=== PATIENT | male | born 1955 | race Caucasian/White ===

== ENCOUNTER 2024-03-31 18:07 | Emergency (ER) | payer MEDICARE, BC, SELFPAY ==
[2024-03-31 18:39] VITALS: BP 109/73; PULSE 62; RESP 16; TEMP 36.6; O2SAT 97; BMI 27.1
--- NOTE | 2024-03-31 18:55 | XR_ITS ---
Examination: Abdomen sonogram, Limited Date and time of exam: March 31, 2024 1725 hrs. Indications: Right upper abdominal pain beginning 2 months ago Technique: Real-time charles scale transabdominal sonographic images of the upper abdomen obtained. Findings: Absent gallbladder Common bile duct 0.7 cm no stones Pancreatic head 3.0 cm Liver 16.7 cm fatty infiltration lobular contour no focal liver lesions Normal hepatopedal portal venous flow Patent IVC Impression: Absent gallbladder No common bile duct stones Mild hepatomegaly, liver irregular in contour, suspect primary hepatocellular disease
--- NOTE | 2024-03-31 18:56 | EDRME_ITS ---
Rapid Medical Screening Exam [facility] Arrival date/time: 03/31/24 18:07 69M with history of alcohol use and cholecystectomy presents to ED with several days of jaundice. Patient was in another ED 2 weeks ago with hypotension and CBD stone. Stones were not removed due to no GI capabilities and transfer was not done. Chief Complaint: Recheck/Abnormal Lab/Rx Vital signs: Vital Signs Temperature 97.8 F 03/31/24 18:39 Pulse Rate 62 03/31/24 18:39 Respiratory Rate 16 03/31/24 18:39 Blood Pressure 109/73 03/31/24 18:39 Pulse Oximetry (%) 97 03/31/24 18:39 Oxygen Delivery Method Room Air 03/31/24 18:39
[2024-03-31 19:47] LABS: Basophils % (Auto) 1 % (0-2.5); Eosinophils # (Auto) 0.2 Thou/mm3 (0.0-0.5); Eosinophils % (Auto) 3 % (0-10); Hematocrit 36.8 % (41.0-53.0); Hemoglobin 12.2 g/dL (13.5-16.0); Immature Granulocytes % (Auto) 1 % (0-0); Immature Granulocytes Auto 0.03 Thou/mm3 (0.00-0.00); Lymphocytes # (Auto) 1.9 Thou/mm3 (1.0-4.8); Lymphocytes % (Auto) 30 % (10-50); Mean Corpuscular HGB Conc 33.2 g/dl (31.0-37.0); Mean Corpuscular Hemoglobin 30.3 pg (25.0-35.0); Mean Corpuscular Volume 92 fL (80-100); Monocytes # (Auto) 0.8 Thou/mm3 (0.0-0.8); Monocytes % (Auto) 12 % (0-12); Neutrophils # (Auto) 3.3 Thou/mm3 (1.8-7.7); Neutrophils % (Auto) 53 % (37-80); Nucleated Red Blood Cell % 0 /100 WBC (0); Platelet Count 212 Thou/mm3 (140-440); RDW Standard Deviation 48.7 fL (35.1-43.9); Red Blood Count 4.02 Miln/mm3 (4.50-5.90); White Blood Count 6.2 Thou/mm3 (3.8-10.6)
[2024-03-31 20:10] LABS: INR 1.1 (0.9-1.3); Partial Thromboplastin Time 26.5 Seconds (22.0-36.0); Prothrombin Time 11.5 Seconds (9.0-12.2)
[2024-03-31 20:26] LABS: Alanine Aminotransferase 57 U/L (10-49); Albumin, Serum 3.5 gm/dL (3.4-4.8); Albumin/Globulin Ratio 1.2 (1.2-2.2); Alkaline Phosphatase 412 U/L (46-116); Anion Gap 4 (7-16); Aspartate Amino Transferase 79 U/L (0-34); BUN/Creatinine Ratio 10 Ratio (12-20); Bilirubin,Total 3.4 mg/dL (0.3-1.2); Blood Urea Nitrogen 8 mg/dL (9-23); Calcium 9.2 mg/dL (8.3-10.6); Calcium (Corrected) 9.6 mg/dL (8.5-10.1); Carbon Dioxide 27.7 mMol/L (20.0-31.0); Chloride 104 mMol/L (98-107); Creatinine (Component) 0.8 mg/dL (0.6-1.3); Globulin 2.9 gm/dL (2.3-3.5); Glucose 79 mg/dL (74-106); Lipase 49 U/L (12-53); Osmolality,Calculated 269 (275-295); Potassium 3.9 mMol/L (3.4-5.1); Sodium 136 mMol/L (136-145); Total Protein 6.4 gm/dL (5.7-8.2); eGFR > 60 See Note
--- NOTE | 2024-03-31 22:17 | PD.EDRECHK ---
ED Recheck Abnl Lab Rx-RME/HPI General Chief Complaint: Recheck/Abnormal Lab/Rx Stated Complaint: STONE IN BILE DUCT Time Seen by Provider: 03/31/24 20:31 Arrival date/time: 03/31/24 18:07 RME / HPI RME / HPI narrative: 03/31/24 18:07 69M with history of alcohol use and cholecystectomy presents to ED with several days of jaundice. Patient was in another ED 2 weeks ago with hypotension and CBD stone. Stones were not removed due to no GI capabilities and transfer was not done. ---- Dr. Bermudez?s Main ED Evaluation: 69yo male with a previous cholecystectomy presents to the ED for a chief complaing of abnormal labs. Patient states he was admitted to his hospital in [place] for 2-3 due to having elevated LFTs, where he received IVF and antibiotics. He was told he may need to get a procedure done to have the CBD stone removed, so he came in for evaluation since our facility has GI. He denies any fever, chills, abdominal pain or any other associated symptoms. Related Data Home Medications ?Medication ?Instructions ?Recorded ?Confirmed Aspirin Ec * (ECOTRIN *) 81 mg PO QDAY ##0 07/17/16 allopurinol 100 mg tablet 100 mg PO BID #0 tabs 07/17/16 (Zyloprim) pantoprazole 40 mg tablet,delayed 40 mg PO QDAY ##0 07/17/16 release (Protonix) simvastatin 20 mg tablet (Zocor) 40 mg PO HS #0 tabs 07/17/16 Cyclobenzaprine * (FLEXERIL *) 10 mg PO Q8HR PRN PAIN #0 tabs 05/21/17 Loratadine/Pseudoephedrine 1 tab PO QDAY ##0 05/21/17 (Allergy Relief D-24 Tablet) folic acid 1 mg tablet 1 mg PO BID #0 tabs 05/21/17 tramadol 50 mg tablet (Ultram) 50 mg PO Q4HR PRN PAIN #0 tabs 05/21/17 Previous Rx's ?Medication ?Instructions ?Recorded Multivitamins With Minerals * (A 1 tab PO QDAY #90 tabs 07/19/16 THRU Z ADVANCED FORMULA *) apixaban 5 mg (74 tabs) tablets in See Rx Instructions .Route 05/19/21 a dose pack (Eliquis DVT-PE Treat .COMPLEX #74 tabs 30D Start) apixaban 5 mg (74 tabs) tablets in See Rx Instructions .Route 05/19/21 a dose pack (Eliquis DVT-PE Treat .COMPLEX #74 tabs 30D Start) Allergies Allergy/AdvReac Type Severity Reaction Status Date / Time milk Allergy Intermediate CONGESTED Verified 05/19/21 16:13 [place] Allergy Severe THROAT Uncoded 05/19/21 16:13 SWELLING [place] Allergy Intermediate RASH Uncoded 05/19/21 16:13 Review of Systems Review of Systems Systems Reviewed: All systems reviewed, normal except as documented Narrative Review of Systems: Gen: No fever, no chills, no weight loss EYES: No discharge, no visual changes, no pain HEENT: No ear pain, no congestion, no sore throat PULM: No shortness of breath, no cough, no congestion CV: No chest pain, no dyspnea on exertion, no palpitations GI: No nausea, no vomiting, no diarrhea, no pain, no constipation : No frequency, no urgency, no dysuria Musc/skel: No joint pain, no back pain Skin: No rash. Warm and dry. Psyc: No hallucinations, no depression Heme/Lymph: No easy bleeding or bruising tendencies Neuro: No weakness, no headache Past Medical History Past Medical History CARDIAC: Positive Cardiac Disorders and Hypercholesterolemia; Negative Congestive Heart Failure RESPIRATORY: Negative Respiratory Disorders or Chronic Obstructive Pulmonary Disease (COPD) GENITOURINARY: Negative Renal Disease ENDOCRINE: Negative Diabetes Mellitus Type 1 or Diabetes Mellitus Type 2 Social History SMOKING STATUS: Never smoker ED Exam Narrative Physical exam: GENERAL APPEARANCE: AxOx4, generally well-appearing, no acute distress. HEENT: NC, AT. MMM. EOMI, clear conjunctiva, oropharynx clear. NECK: Supple without lymphadenopathy. No stiffness or restricted ROM. HEART: Normal rate and regular rhythm, normal S1/S1, no m/r/g LUNGS: CTAB, moving air well. No crackles or wheezes are heard. ABDOMEN: Soft, nontender, nondistended with good bowel sounds heard. BACK: No midline C/T/L spine pain or deformity, No CVAT, no obvious deformity. EXTREMITIES: Without cyanosis, clubbing or edema. MUSCULOSKELETAL: FROM of all major joints, no chest tenderness NEUROLOGICAL: Grossly nonfocal. Alert and oriented, moving all 4 extremities. CN not formally tested but appear grossly intact. Observed to ambulate with normal gait. Skin: Warm and dry without any rash. Jaundiced. Course Course Course Narrative: OBSERVATION NOTE: The patient was placed in ED observation care at 03/31/24 at 2100 hours. The patient was placed in ED observation care because of pending MRCP. The patients past medical history, social history, and family history were reviewed. The plan of care will include serial examinations. 0600: Care signed out to Dr. Cabello (emergency physician). Past medical, surgical, social and family history reviewed. Vitals and home medications reviewed. Results and treatment plan discussed. They will assume the care of the patient at this time and will follow the patient, pending MRCP. At this time, observation has ended. Quality Measures none Orders Category Date Time Status Insert IV NOW Care 04/01/24 00:59 Active MRI Screening NOW Care 03/31/24 21:31 Active MR MRCP Stat Exams 03/31/24 Ordered US gall bladder Stat Exams 03/31/24 18:55 Completed CBC Stat Lab 03/31/24 19:15 Completed CMP [Comprehensive Metabolic Panel] Stat Lab 03/31/24 19:15 Completed INR [Prothrombin Time with INR] Stat Lab 03/31/24 19:15 Completed Lipase Stat Lab 03/31/24 19:15 Completed PTT [Partial Thromboplastin Time] Stat Lab 03/31/24 19:15 Completed Vital Signs Vital signs: Vital Signs Temperature 97.8 F 03/31/24 18:39 Pulse Rate 62 03/31/24 18:39 Respiratory Rate 16 03/31/24 18:39 Blood Pressure 109/73 03/31/24 18:39 Pulse Oximetry (%) 97 03/31/24 18:39 Oxygen Delivery Method Room Air 03/31/24 18:39 Recheck / Abnormal Lab / Rx Patient data External records reviewed:: [facility] previous records (Per chart review, patient has no relevant previous ED visits or admissions to this facility.) and Other (specify) (Reviewed records from [facility] in [place] (03/16/24), at which time, the patient was accepted to a [facility] pending bed availability, but the patient left AMA. Lactate was initially 4.2 and improved after IVF.) Clinical information provided by:: patient Social determinants that could affect healthcare access:: none Patient has the following chronic illnesses:: HLD How is presenting disease/condition affected by chronic disease/condition?: uneffected by Evaluation data The following diagnostics were reviewed and interpreted by me:: lab results and radiology exam(s) Lab and/or radiology exams considered but not ordered:: none Interpretation Summary: CBC is normal, PTT is normal, PT and INR are normal, Total Bilirubin is elevated at 3.4, LFTs are elevated, lipase is normal, according to my interpretation. --- [facility] Report Signed Patient: NICHOLE COLLADO. Record#: [id number] Birthdate: 1955 Age/Sex: 69 / M Location: [facility] Attending Dr: Ordering Physician: Ranjit Valentin PA-C Date of Service: 03/31/24 Procedure(s): US gall bladder Accession Number(s): [id number] cc: Wes May MD; NO PRIMARY/FAMILY,PHYSICIAN; Ranjit Valentin PA-C~ Examination: Abdomen sonogram, Limited Date and time of exam: March 31, 2024 1725 hrs. Indications: Right upper abdominal pain beginning 2 months ago Technique: Real-time charles scale transabdominal sonographic images of the upper abdomen obtained. Findings: Absent gallbladder Common bile duct 0.7 cm no stones Pancreatic head 3.0 cm Liver 16.7 cm fatty infiltration lobular contour no focal liver lesions Normal hepatopedal portal venous flow Patent IVC Impression: Absent gallbladder No common bile duct stones Mild hepatomegaly, liver irregular in contour, suspect primary hepatocellular disease Dictated By: Wes May MD Signed By: <Electronically signed by Wes May MD in OV> 03/31/242005 Medications / Prescriptions Medications or Prescriptions considered but not ordered:: none Medication administrations:: see above, if any Consultations Consultation(s) initiated? (list below): No Diagnosis Recheck Differential Diagnosis: other (choledocolithiasis, hepatitis, hepatocellular disease) Most likely diagnosis given after review of the tests above:: as below Admission Indicated Admission indicated?: not indicated Admission Request Was there a request for admission?: No Disposition Plan Disposition Plan: other (specify) (Signed out to Dr. Cabello at 0600 pending [facility].) Discharge Plan Prescriptions/Referrals Prescriptions/Med Rec: No Action Aspirin Ec * (ECOTRIN *) 81 MG TABLET.DR 81 mg PO QDAY Qty: 0 allopurinol [Zyloprim] 100 MG tablet 100 mg PO BID Qty: 0 pantoprazole [Protonix] 40 MG tablet,delayed release (DR/EC) 40 mg PO QDAY Qty: 0 Patient Comments: TO SUPPRESS [employer]IONS simvastatin [Zocor] 20 MG tablet 40 mg PO HS Qty: 0 Multivitamins With Minerals * (A THRU Z ADVANCED FORMULA *) 1 EACH tablet 1 tab PO QDAY Qty: 90 1RF tramadol [Ultram] 50 MG tablet 50 mg PO Q4HR PRN (Reason: PAIN) Qty: 0 Patient Comments: FOR PAIN, NOT TO EXCEED 8 TABS IN 24 HRS folic acid 1 MG tablet 1 mg PO BID Qty: 0 Cyclobenzaprine * (FLEXERIL *) 10 MG tablet 10 mg PO Q8HR PRN (Reason: PAIN) Qty: 0 Loratadine/Pseudoephedrine (Allergy Relief D-24 Tablet) 1 EACH TAB.ER.24H 1 tab PO QDAY Qty: 0 Eliquis DVT-PE Treat 30D Start 5 mg (74 tabs) tablets,dose pack See Rx Instructions .ROUTE .COMPLEX Qty: 74 0RF Rx Instructions: 1 starter pack as directed Eliquis DVT-PE Treat 30D Start 5 mg (74 tabs) tablets,dose pack See Rx Instructions .ROUTE .COMPLEX Qty: 74 0RF Rx Instructions: 1 starter pack as directed Referrals: No Primary/Family,Physician [Primary Care Provider] - In 1 week Problem List Clinical Impression: Jaundice, Transaminitis Patient/Caregiver Discharge Instructions Print Language: Somali
[2024-03-31 22:54] VITALS: BP 121/69; PULSE 48; RESP 20; TEMP 36.6; O2SAT 100
--- NOTE | 2024-03-31 23:57 | PC.NURSE ---
Assume care for this 69 year male with chief c/o of abnormal labs in which he reports having elevated LFTs and that he was seen in a ER approx 2 weeks where he was told he has stone in the common bile duct, so he came into this ER today tp get reevaluated. Pt is a GCS of 15 ,A&OX4. Pt was given update on plan of care. call light with in reach.
[2024-04-01] VITALS (11 sets, daily range): BP systolic 117–188; BP diastolic 64–127; PULSE 47–117; RESP 13–18; TEMP 36.4–38.8; O2SAT 96–100
--- NOTE | 2024-04-01 | XR_ITS ---
MRI abdomen, without contrast. MRCP Date and time of exam: April 01, 2024 0832 hrs. Indications: Onset jaundice beginning several days ago, right upper abdominal pain beginning 2 months ago, cholecystectomy 2019 Technique: Multiple axial and coronal images of the abdomen have been obtained with the Siemens 1.5T MRI scanner. Images obtained included T1 weighted transverse images, T2-weighted transverse images, T2-weighted transverse images fat-suppressed, T2 weighted haste fat suppressed transverse images, T1 weighted images, in and out of phase images, T2-weighted coronal images, breath hold, T2 weighted haze coronal images as well as T2 weighted coronal thick slab images, MRCP. Findings: Intrahepatic biliary tract dilatation, cirrhosis, liver irregular in contour Absent gallbladder Common hepatic duct 9 mm 10 mm impacted stone in the distal common bile duct, coronal image 14 Splenomegaly 15 cm No ascites Moderate bilateral renal parenchymal scar formation, no hydronephrosis Aorta normal size Impression: Cirrhosis Significant splenomegaly 10 mm impacted stone in the distal common bile duct
--- NOTE | 2024-04-01 01:38 | PC.NURSE ---
Pt made aware that he needs an IV for the MRCP, but decline at this time and requested for the IV to be done in the morning before technical sales support specialist picks him up.
--- NOTE | 2024-04-01 05:49 | EDNOTE_ITS ---
Emergency Room Addendum <Angelo Cabello MD - Last Filed: 04/02/24 08:01> Addendum Narrative: Care assumed from Dr. Bermudez, pending MRCP. 0725 Patient was seen in two different locations in [place] for jaundice and elevated liver enzymes. 03/25 CT report with contrast with conflicted report of gallbladder, bilirubin 4 1/2, liver enzymes elevates, normal lipase. 03/24 Patient was seen for the same report with essential and remarkable lab changes with no new imaging studies and patient signed out AMA. Ordering Physician: Chandrakant Bermudez MD Date of Service: 04/01/24 Procedure(s): MR MRCP Accession Number(s): [id number] cc: Chandrakant Bermudez MD; Wes May MD; NO PRIMARY/FAMILY,PHYSICIAN~ MRI abdomen, without contrast. MRCP Date and time of exam: April 01, 2024 0832 hrs. Indications: Onset jaundice beginning several days ago, right upper abdominal pain beginning 2 months ago, cholecystectomy 2019 Technique: Multiple axial and coronal images of the abdomen have been obtained with the Siemens 1.5T MRI scanner. Images obtained included T1 weighted transverse images, T2-weighted transverse images, T2-weighted transverse images fat-suppressed, T2 weighted haste fat suppressed transverse images, T1 weighted images, in and out of phase images, T2-weighted coronal images, breath hold, T2 weighted haze coronal images as well as T2 weighted coronal thick slab images, MRCP. Findings: Intrahepatic biliary tract dilatation, cirrhosis, liver irregular in contour Absent gallbladder Common hepatic duct 9 mm 10 mm impacted stone in the distal common bile duct, coronal image 14 Splenomegaly 15 cm No ascites Moderate bilateral renal parenchymal scar formation, no hydronephrosis Aorta normal size Impression: Cirrhosis Significant splenomegaly 10 mm impacted stone in the distal common bile duct Dictated By: Wes May MD Signed By: <Electronically signed by Wes May MD in OV> 04/01/24 0917 1150 Patient was discussed with the backer up at [facility] [[email or web address] Due to the stone being larger than the diameter of the common bile duct, it is recommended that the patient go to a Medical Center that is capable of cholangioscopy, which is not available at that hospital. <Papa Bautista - Last Filed: 04/01/24 13:22> Addendum Narrative: Care assumed from Dr. Bermudez, pending MRCP. 0725 Patient was seen in two different locations in [place] for jaundice and elevated liver enzymes. 03/25 CT report with contrast with conflicted report of gallbladder, bilirubin 4 1/2, liver enzymes elevates, normal lipase. 03/24 Patient was seen for the same report with essential and remarkable lab changes with no new imaging studies and patient signed out AMA. Ordering Physician: Chandrakant Bermudez MD Date of Service: 04/01/24 Procedure(s): MR MRCP Accession Number(s): [id number] cc: Chandrakant Bermudez MD; Wes May MD; NO PRIMARY/FAMILY,PHYSICIAN~ MRI abdomen, without contrast. MRCP Date and time of exam: April 01, 2024 0832 hrs. Indications: Onset jaundice beginning several days ago, right upper abdominal pain beginning 2 months ago, cholecystectomy 2019 Technique: Multiple axial and coronal images of the abdomen have been obtained with the Siemens 1.5T MRI scanner. Images obtained included T1 weighted transverse images, T2-weighted transverse images, T2-weighted transverse images fat-suppressed, T2 weighted haste fat suppressed transverse images, T1 weighted images, in and out of phase images, T2-weighted coronal images, breath hold, T2 weighted haze coronal images as well as T2 weighted coronal thick slab images, MRCP. Findings: Intrahepatic biliary tract dilatation, cirrhosis, liver irregular in contour Absent gallbladder Common hepatic duct 9 mm 10 mm impacted stone in the distal common bile duct, coronal image 14 Splenomegaly 15 cm No ascites Moderate bilateral renal parenchymal scar formation, no hydronephrosis Aorta normal size Impression: Cirrhosis Significant splenomegaly 10 mm impacted stone in the distal common bile duct Dictated By: Wes May MD Signed By: <Electronically signed by Wes May MD in OV> 04/01/24 0917 1150 Patient was discussed with the backer up at [facility] [[email or web address] Due to the stone being larger than the diameter of the common bile duct, it is recommended that the patient go to a Medical Center that is capable of cholangioscopy, which is not available at that hospital. [address] by Dr[address] Haines.
--- NOTE | 2024-04-01 06:25 | PD.EDADDENDU ---
Emergency Room Addendum Addendum Narrative: [address] Bermudez (emergency physician). Past medical, surgical, social and family history reviewed. Vitals and home medications reviewed. Results and treatment plan discussed. I will assume the care of the patient at this time and will follow the patient, pending MRCP.
--- NOTE | 2024-04-01 07:20 | PC.NURSE ---
Pt resting sinus darleen on tele, provider aware, pt denies any associated symptoms. Pt in no apparent distress, denies pain at this time, pt in agreement w/POC. Call hernandez and belongings in reach.
--- NOTE | 2024-04-01 09:45 | PC.NURSE ---
pt states security told him he needs to move his camper, he will be back in once it is moved.
--- NOTE | 2024-04-01 10:56 | PC.CM ---
Addendum entered by Charline Magana RN 04/01/24 14:32: Patient has been accepted at [facility] medically by Dr. Raghu Pak. We are waiting for an open bed. Addendum entered by Charline Magana RN 04/01/24 12:49: 1200 I called [facility] to make sure they received all my paperwork and the images I pushed over. Lexy stated they received all the paperwork. I let them know that [facility] reviewed patient and they declined acceptance stating patient needs a cholangioscopy due to the very large stone and its position. Addendum entered by Charline Magana RN 04/01/24 12:07: 1145 Carol Rodriguez transfer center nurse called me back and states their doctor spoke to our doctor and patient will to go to a facility where they can [facility]. Addendum entered by Charline Magana RN 04/01/24 11:38: 1130 I contacted [facility] and initiated a transfer. I faxed over paperwork and pushed over images. 1105 I reached out to [facility] to make sure they received all my paperwork. they stated they are very busy but they did receive everything. Carol stated they will be reviewing the patient shortly. Original Note: 1023 I received a referral to transfer patient for ERCP. Patient had a MRCP which showed stones. I contacted [facility] and I initiated a transfer. I started packet and made a CD.
--- NOTE | 2024-04-01 13:17 | PC.NURSE ---
NIKKIE FROM [facility] CALLING TO SPEAK WITH DR BEAL AT THIS TIME
[2024-04-01] MEDS: ENALAPRILAT INJ 1.25 MG/ML VIAL IVP (13:39)
[2024-04-01] MEDS: hydrALAZINE INJ 20 MG/ML VIAL 10 MG IV (13:47)
[2024-04-01] MEDS: HYDROmorphone INJ 2 MG/ML VIAL 1 MG IVP (13:47)
[2024-04-01] MEDS: SODIUM CHLORIDE 0.9% 1000 ML 1,000 ML 999 ML IV (13:48)
--- NOTE | 2024-04-01 17:19 | PC.NURSE ---
Pt family came and reported pt felt hot, this RN went in pts temp was 102 oral, this RN then took blankets off pt. Pt had 5 blankets on, provider made aware.
--- NOTE | 2024-04-01 17:29 | PC.NURSE ---
pts temp had decreased to 100.2 since taking the blankets off of him.
--- NOTE | 2024-04-01 19:44 | PC.NURSE ---
report to judy watts at [facility], transport by [facility]
== END 2024-04-01 19:53 | disposition short-term general hospital (02) ==
PROVIDERS: Physician Assistant; Emergency Provider Emergency Medicine
DX: K80.50 Calculus of bile duct without cholangitis or cholecystitis without obstruction (principal); K74.60 Unspecified cirrhosis of liver; Z90.49 Acquired absence of other specified parts of digestive tract; R16.2 Hepatomegaly with splenomegaly, not elsewhere classified
CPT/HCPCS: 36415; 76705; 80053; 83690; 85025; 85610; 85730; 96361; 96374; 96375; 99285; J0360; J1170; J7030; S8037; 74181